=== PATIENT | female | born 1940 | race Caucasian/White ===

== ENCOUNTER → 2017-01-06 | Outpatient (CLI) | payer MEDICARE | END | disposition home or self-care (01) | LOC: CFH 07:54 | PROVIDERS: ATTEND Family Medicine | DX: Z12.31 Encounter for screening mammogram for malignant neoplasm of breast (principal); Z13.820 Encounter for screening for osteoporosis; J45.20 Mild intermittent asthma, uncomplicated; M81.0 Age-related osteoporosis without current pathological fracture | CPT/HCPCS: 77080; G0202 ==

== ENCOUNTER 2017-02-28 12:49 | Inpatient (IN) | payer MEDICARE ==
[~2017-02-28] VITALS: Ht 170.2 cm; Wt 80.6 kg
[2017-02-28] MEDS ORDERED: MORPHINE SULFATE 4 MG/ML, 1ML IVPush PRN (13:30)
[2017-02-28] MEDS ORDERED: ONDANSETRON 2MG/ML, 2ML IVPush ONE (13:30)
[2017-02-28] MEDS ORDERED: SODIUM CHLORIDE FLUSH 10ML SYR IVF ONE (13:30)
[2017-02-28] MEDS ORDERED: ONDANSETRON 2MG/ML, 2ML ONE (13:30)
[2017-02-28] MEDS ORDERED: MORPHINE SULFATE 4 MG/ML, 1ML ONE (13:30)
[2017-02-28] MEDS ORDERED: SODIUM CHLORIDE 0.9% 1,000ML IVBOLUS ONE (13:30)
[2017-02-28 13:43] LABS: HEMATOCRIT 44.7 % (34.6-47.8); HEMOGLOBIN 15.1 g/dL (11.7-16.4); WHITE BLOOD COUNT 12.5 x10^3/uL (3.4-10)
[2017-02-28 13:54] LABS: ASPARTATE AMINO TRANSFERASE 25 U/L (15-37); BLOOD UREA NITROGEN 11 mg/dL (7-18)
[2017-02-28] MEDS ORDERED: CEFTRIAXONE PMX 1GM/50ML 50 ML IVPB ONE (15:30)
[2017-02-28] MEDS ORDERED: AZITHROMYCIN 500 MG in SODIUM CHLORIDE 0.9% 250 ML IV ONE (15:30)
[2017-02-28] MEDS ORDERED: CEFTRIAXONE PMX 1GM/50ML 50 ML ONE (15:38)
[2017-02-28] MEDS ORDERED: METF500T4 PO (16:10)
[2017-02-28] MEDS ORDERED: AMLO5TAB2 PO (16:10)
[2017-02-28] MEDS ORDERED: ATOR40TA PO (16:10)
[2017-02-28] MEDS ORDERED: METO50TA82 PO (16:10)
[2017-02-28] MEDS: CEFTRIAXONE PMX 1GM/50ML 50 ML IV SCH (16:50)
[2017-02-28] MEDS ORDERED: DEXTROSE 50%, 50ML SYRINGE IVPush PRN (17:00)
[2017-02-28] MEDS ORDERED: DEXTROSE 4 GM TAB.CHEW PO PRN (17:00)
[2017-02-28] MEDS ORDERED: ONDANSETRON 2MG/ML, 2ML IVPush PRN (17:00)
[2017-02-28] MEDS ORDERED: ENOXAPARIN 40 MG/0.4 ML SQ SCH (17:00)
[2017-02-28] MEDS ORDERED: GLUCAGON 1 MG IM PRN (17:00)
[2017-02-28] MEDS ORDERED: PROMETHAZINE 25 MG/ML, 1ML IM PRN (17:00)
[2017-02-28] MEDS: ATORVASTATIN 40 MG TABLET PO SCH (21:00)
[2017-02-28] MEDS: INSULIN ASPART 100 UNITS/ML, PEN SQ-INSULIN SCH (21:00)
[2017-02-28] MEDS: SODIUM CHLORIDE FLUSH 10ML SYR IVF SCH (21:00)
[2017-02-28] MEDS: METOPROLOL TARTRATE 50 MG TABLET PO SCH (21:00)
[2017-02-28] MEDS: SODIUM CHLORIDE 0.9% 1,000 ML IV SCH (21:34)
[2017-02-28] MEDS: morphine SULFATE 10 MG/ML, 1ML IVPush PRN (21:34)
[2017-02-28 21:37] VITALS: BP 109/63
[2017-02-28] MEDS: DOXYCYCLINE 100 MG in DEXTROSE 5% 250 ML IV SCH (21:54)
[2017-03-01] MEDS ORDERED: MORPHINE SULFATE 4 MG/ML, 1ML ONE ×3 (01:13→10:22)
[2017-03-01] MEDS: morphine SULFATE 10 MG/ML, 1ML IVPush PRN ×4 (01:16→11:18)
[2017-03-01 01:55] VITALS: BP 98/59
[2017-03-01] MEDS: SODIUM CHLORIDE 0.9% 1,000 ML IV SCH ×3 (05:10→21:00)
[2017-03-01] MEDS: INSULIN ASPART 100 UNITS/ML, PEN SQ-INSULIN SCH ×4 (05:11→21:00)
[2017-03-01 05:55] LABS: HEMATOCRIT 37.5 % (34.6-47.8); HEMOGLOBIN 12.9 g/dL (11.7-16.4); WHITE BLOOD COUNT 9.3 x10^3/uL (3.4-10)
[2017-03-01 05:56] LABS: ASPARTATE AMINO TRANSFERASE 18 U/L (15-37); BLOOD UREA NITROGEN 10 mg/dL (7-18)
[2017-03-01 08:00] VITALS: BP 106/59
[2017-03-01] MEDS: SODIUM CHLORIDE FLUSH 10ML SYR IVF SCH ×2 (09:00→21:01)
[2017-03-01] MEDS: AMLODIPINE 5 MG TABLET PO SCH (10:12)
[2017-03-01] MEDS: DOXYCYCLINE 100 MG in DEXTROSE 5% 250 ML IV SCH ×2 (10:12→22:02)
[2017-03-01] MEDS: METOPROLOL TARTRATE 50 MG TABLET PO SCH ×2 (10:12→21:00)
[2017-03-01] MEDS: ENOXAPARIN 80 MG/0.8 ML SQ SCH ×2 (11:15→23:03)
[2017-03-01] MEDS ORDERED: OMNIPAQUE 350 MG/ML, 100ML BOTTLE ONE (11:30)
[2017-03-01 15:07] VITALS: BP 117/67
[2017-03-01] MEDS: CEFTRIAXONE PMX 1GM/50ML 50 ML IV SCH (17:49)
[2017-03-01 19:03] VITALS: BP 122/67
[2017-03-01] MEDS ORDERED: WARFARIN 5 MG TABLET PO-COUM ONE (20:00)
[2017-03-01] MEDS: ATORVASTATIN 40 MG TABLET PO SCH (21:00)
[2017-03-02 03:24] VITALS: BP 128/67
[2017-03-02 05:13] LABS: HEMATOCRIT 40.1 % (34.6-47.8); HEMOGLOBIN 13.6 g/dL (11.7-16.4); WHITE BLOOD COUNT 7.6 x10^3/uL (3.4-10)
[2017-03-02 05:27] LABS: BLOOD UREA NITROGEN 6 mg/dL (7-18)
[2017-03-02] MEDS: INSULIN ASPART 100 UNITS/ML, PEN SQ-INSULIN SCH ×4 (07:00→20:32)
[2017-03-02 08:09] VITALS: BP 118/72
[2017-03-02] MEDS: METOPROLOL TARTRATE 50 MG TABLET PO SCH ×2 (09:37→20:31)
[2017-03-02] MEDS: SODIUM CHLORIDE 0.9% 1,000 ML IV SCH ×2 (09:37→18:12)
[2017-03-02] MEDS: AMLODIPINE 5 MG TABLET PO SCH (09:37)
[2017-03-02] MEDS: SODIUM CHLORIDE FLUSH 10ML SYR IVF SCH ×2 (09:38→20:31)
[2017-03-02] MEDS: DOXYCYCLINE 100 MG in DEXTROSE 5% 250 ML IV SCH ×2 (09:44→22:25)
[2017-03-02] MEDS: ENOXAPARIN 80 MG/0.8 ML SQ SCH ×2 (11:29→22:55)
[2017-03-02 12:43] VITALS: BP 126/73
[2017-03-02] MEDS ORDERED: WARFARIN 5 MG TABLET PO-COUM ONE (18:00)
[2017-03-02] MEDS: CEFTRIAXONE PMX 1GM/50ML 50 ML IV SCH (18:11)
[2017-03-02 20:19] VITALS: BP 123/72
[2017-03-02] MEDS: ATORVASTATIN 40 MG TABLET PO SCH (20:31)
[2017-03-02] MEDS: morphine SULFATE 10 MG/ML, 1ML IVPush PRN (23:06)
[2017-03-03 04:11] VITALS: BP 128/74
[2017-03-03 06:27] VITALS: BP 129/67
[2017-03-03] MEDS: SODIUM CHLORIDE 0.9% 1,000 ML IV SCH ×2 (06:31→10:41)
[2017-03-03] MEDS: INSULIN ASPART 100 UNITS/ML, PEN SQ-INSULIN SCH ×3 (07:00→16:00)
[2017-03-03] MEDS: SODIUM CHLORIDE FLUSH 10ML SYR IVF SCH (08:15)
[2017-03-03] MEDS: AMLODIPINE 5 MG TABLET PO SCH (08:15)
[2017-03-03] MEDS: METOPROLOL TARTRATE 50 MG TABLET PO SCH (08:15)
[2017-03-03] MEDS: DOXYCYCLINE 100 MG in DEXTROSE 5% 250 ML IV SCH (10:18)
[2017-03-03] MEDS: ENOXAPARIN 80 MG/0.8 ML SQ SCH (10:39)
[2017-03-03 13:49] VITALS: BP 124/76
[2017-03-03] MEDS ORDERED: WARF5TAB PO (15:16)
[2017-03-03] MEDS ORDERED: ENOX80SY4 SQ (15:16)
[2017-03-03] MEDS: CEFTRIAXONE PMX 1GM/50ML 50 ML IV SCH (16:53)
[2017-03-03] MEDS ORDERED: WARFARIN 5 MG TABLET PO-COUM ONE (18:00)
== END 2017-03-03 18:30 | disposition home health service (06) | DRG 393 ==
LOC: ED 13:32 → EDIP 15:26 → 4NOR 21:20
PROVIDERS: ADMIT Internal Medicine; ATTEND Internal Medicine
DX: K43.6 Other and unspecified ventral hernia with obstruction, without gangrene (principal); J18.1 Lobar pneumonia, unspecified organism; J96.01 Acute respiratory failure with hypoxia; I26.99 Other pulmonary embolism without acute cor pulmonale; E43 Unspecified severe protein-calorie malnutrition; D68.69 Other thrombophilia; E11.9 Type 2 diabetes mellitus without complications; E83.39 Other disorders of phosphorus metabolism; J98.11 Atelectasis; E78.5 Hyperlipidemia, unspecified; I10 Essential (primary) hypertension; J45.909 Unspecified asthma, uncomplicated; Z87.442 Personal history of urinary calculi; Z90.49 Acquired absence of other specified parts of digestive tract; Z90.710 Acquired absence of both cervix and uterus; Z90.89 Acquired absence of other organs; Z79.84 Long term (current) use of oral hypoglycemic drugs; Z79.899 Other long term (current) drug therapy; Z88.6 Allergy status to analgesic agent; Z68.27 Body mass index [BMI] 27.0-27.9, adult
CPT/HCPCS: 36415; 71260; 74176; 74250; 80048; 80053; 81001; 82962; 83036; 83690; 83735; 84100; 85025; 85610; 87040; 87070; 87086; 87205; 93306; 93970; 96365; 96367; 96372; J0456; J0696; J1650; J2405; J7060; Q9967; J2270; J7030; J7050

== ENCOUNTER → 2017-06-15 | Outpatient (CLI) | payer MEDICARE ==
[~2017-06-15] MED LIST: AMLO5TAB2 PO; ATOR40TA PO; ENOX80SY4 SQ; METF500T4 PO; METO50TA82 PO; WARF5TAB PO
== END | disposition home or self-care (01) ==
LOC: CFH 08:46
PROVIDERS: ATTEND Family Medicine
DX: M25.551 Pain in right hip (principal); I10 Essential (primary) hypertension; E78.2 Mixed hyperlipidemia; I44.0 Atrioventricular block, first degree; R73.02 Impaired glucose tolerance (oral); K57.30 Diverticulosis of large intestine without perforation or abscess without bleeding; J45.20 Mild intermittent asthma, uncomplicated; G25.81 Restless legs syndrome; G47.00 Insomnia, unspecified; Z86.010 Personal history of colon polyps; Z83.3 Family history of diabetes mellitus; Z86.711 Personal history of pulmonary embolism

== ENCOUNTER 2017-09-02 06:12 | Day surgery (SDC) | payer MEDICARE ==
[2017-09-02] MEDS ORDERED: BUPIVACAINE/PF 0.5% ONE (07:00)
[2017-09-02] MEDS ORDERED: EPINEPHRINE 1 MG/ML, 1ML ONE (07:00)
== END 2017-09-02 08:02 | disposition home or self-care (01) ==
LOC: OUT 06:12
PROVIDERS: ATTEND Colon & Rectal Surgery
DX: R15.9 Full incontinence of feces (principal); Z53.9 Procedure and treatment not carried out, unspecified reason
CPT/HCPCS: 93005; J0171; J3490

== ENCOUNTER → 2019-07-04 | Outpatient (CLI) | payer MEDICARE ==
[~2019-07-04] MED LIST changes: +AMLO-150 PO; -AMLO5TAB2 PO; +METF500T17 PO; -METF500T4 PO
== END | disposition home or self-care (01) ==
LOC: CFH 14:44
PROVIDERS: ATTEND Family Medicine
DX: Z12.31 Encounter for screening mammogram for malignant neoplasm of breast (principal)
CPT/HCPCS: 77067

== ENCOUNTER 2019-08-30 12:02 | Outpatient (CLI) | payer MEDICARE | END 2019-08-30 23:59 | disposition home or self-care (01) | LOC: CFH 12:02 | PROVIDERS: ATTEND Physician Assistant Medical | DX: M25.551 Pain in right hip (principal) ==

== ENCOUNTER → 2021-01-22 | Outpatient (CLI) | payer MEDICARE ==
[~2021-01-22] MED LIST changes: -WARF5TAB PO; +WARF5TAB2 PO
== END | disposition home or self-care (01) ==
LOC: CFH 11:17
PROVIDERS: ATTEND Family Medicine
DX: M19.072 Primary osteoarthritis, left ankle and foot (principal)

== ENCOUNTER 2021-02-09 09:19 | Emergency (ER) | payer MEDICARE ==
[~2021-02-09] VITALS: Ht 167.6 cm; Wt 77.7 kg
--- NOTE | 2021-02-09 09:31 | NUR ---
EKG DONE IN TRIAGE.
[2021-02-09] MEDS ORDERED: SODIUM CHLORIDE FLUSH 10ML SYR IVF ONE (10:00)
[2021-02-09 10:05] LABS: BASOPHILS % (AUTO) 1 % (0-1); EOSINOPHILS % (AUTO) 1 % (1-7); LYMPHOCYTES % (AUTO) 22 % (22-44); MEAN CORPUSCULAR HEMOGLOBIN 30.3 pg (27.0-34.8); MEAN CORPUSCULAR HGB CONC 34.1 g/dL (32.4-35.8); MEAN PLATELET VOLUME 7.9 fL (7.4-10.4); MONOCYTES % (AUTO) 8 % (2-9); NEUTROPHILS % (AUTO) 68 % (42-75); PLATELET COUNT 237 x10^3/uL (130-400); RED BLOOD COUNT 4.93 x10^6/uL (3.82-5.3)
[2021-02-09 10:17] LABS: ALANINE AMINOTRANSFERASE 25 U/L (12-78); ALBUMIN 3.4 g/dL (3.4-5.0); ANION GAP 8 mmol/L (5-15); CALCIUM 8.4 mg/dL (8.5-10.1); CHLORIDE 105 mmol/L (98-107); CREATININE 0.86 mg/dL (0.55-1.02)
[2021-02-09 10:21] LABS: ALKALINE PHOSPHATASE 69 U/L (45-117); BILIRUBIN,TOTAL 0.4 mg/dL (0.2-1.0); TOTAL PROTEIN 7.5 g/dL (6.4-8.2); TROPONIN I < 0.015 ng/mL (0.000-0.045)
[2021-02-09] MEDS ORDERED: ALBUTEROL SULFATE 2.5 MG/3 ML ONE (10:48)
[2021-02-09] MEDS ORDERED: IPRATROPIUM 0.5 MG/2.5 ML INHA ONE (10:48)
[2021-02-09] MEDS ORDERED: ALBUTEROL/IPRATROPIUM 2.5MG/0.5MG, 3 ML ONE (10:50)
[2021-02-09] MEDS ORDERED: ALBUTEROL/IPRATROPIUM 2.5MG/0.5MG, 3 ML NPPB ONE (11:00)
[2021-02-09] MEDS ORDERED: FILTER 0.22 MICRON IV ONE (11:00)
[2021-02-09] MEDS ORDERED: CASIRIVIMAB 600 MG, IMDEVIMAB (REGN10987) 600 MG in SODIUM CHLORIDE 0.9% 250 ML IVPB ONE (11:00)
--- NOTE | 2021-02-09 11:45 | NUR ---
PT CHANGED INTO [facility]. IV STARTED. ORDERED IV MED STARTED ON PUMP ORDERED IN [facility]. BREATHING TREATMENT STARTED WELL. PT PLACED ON HUMAN [employer]OURCES PROJECT COORDINATOR AND VITALS MONITORS. WILL CONTINUE TO MONITOR.
--- NOTE | 2021-02-09 12:55 | NUR ---
Pt report received and care assumed. Pt awaiting completion of IV medication before being d/c'd home per report. Pt in room with IV medication running via pump without issue.
[2021-02-09 13:59] VITALS: BP 126/78
== END 2021-02-09 14:01 | disposition home or self-care (01) ==
LOC: ED 11:47
DX: U07.1 COVID-19 (principal); J06.9 Acute upper respiratory infection, unspecified; J45.909 Unspecified asthma, uncomplicated; I10 Essential (primary) hypertension; E11.9 Type 2 diabetes mellitus without complications
CPT/HCPCS: 36415; 71045; 80053; 84484; 85025; 93005; 94640; 99285; M0243

== ENCOUNTER 2021-02-21 14:59 | Outpatient (CLI) | payer MEDICARE ==
[2021-02-21] MEDS ORDERED: OMNIPAQUE 350 MG/ML, 100ML BOTTLE ONE (15:15)
== END 2021-02-21 23:59 | disposition home or self-care (01) ==
LOC: CFH 14:59
PROVIDERS: ATTEND Nurse Practitioner Family
DX: K43.9 Ventral hernia without obstruction or gangrene (principal); K57.90 Diverticulosis of intestine, part unspecified, without perforation or abscess without bleeding; J98.6 Disorders of diaphragm; Z90.49 Acquired absence of other specified parts of digestive tract
CPT/HCPCS: 74177; Q9967